=== PATIENT | female | born 2000 | race Hispanic/Latino ===

== ENCOUNTER → 2024-03-02 08:17 | Outpatient (CLI) | payer BC, SELFPAY ==
[2024-03-02 09:15] LABS: Influenza A - CEPHEID Flu A NEGATIVE (NEGATIVE); Influenza B - CEPHEID Flu B NEGATIVE (NEGATIVE); Respiratory Syncytial Virus Negative (Negative)
[2024-03-02 09:16] LABS: COVID-19 CEPHEID 4-PLEX PCR Negative (Negative)
== END ==
PROVIDERS: Referring Provider Physician Assistant Surgical; Visit Provider Physician Assistant Surgical
DX: R05.1 Acute cough (principal); J02.9 Acute pharyngitis, unspecified
CPT/HCPCS: 0241U; 87070; 87077; 87147

== ENCOUNTER 2024-07-24 16:09 | Emergency (ER) | payer BC, SELFPAY ==
[2024-07-24 16:32] VITALS: BP 120/86; PULSE 73; RESP 16; TEMP 36.6; O2SAT 97; BMI 21.5
--- NOTE | 2024-07-24 16:35 | DI.RAD.S_ITS ---
PROCEDURE: XR FOOT LT MIN 3V INDICATIONS: kicked peloton bike base/swollen 4th digit and metatarsal TECHNIQUE: 3 views of the foot were acquired. COMPARISON: None. FINDINGS: Bones: There is a mildly displaced fracture seen involving the shaft of the proximal phalanx of the 4th toe. No intra-articular involvement is seen. No additional fractures are detected. Incidental note is made of an accessory ossicle, an os peroneum. Soft tissues: 4th toe soft tissue swelling is seen. IMPRESSION: Fourth toe fracture. Dictated by: Bradly Mckeon M.D. on 07/24/2024 at 16:20 Approved by: Bradly Mckeon M.D. on 07/24/2024 at 16:21
--- NOTE | 2024-07-24 18:30 | ED_ITS ---
HPI - Extremity Injury (Lower) <Radha Peñlaoza PA-C - Last Filed: 07/24/24 19:30> General Chief Complaint: Extremity Injury, Lower Stated [facility] Time Seen by Provider: 07/24/24 18:25 History of Present Illness HPI Narrative: Ms. Rabago is a pleasant 24-year-old female with no reported past medical history who presents to the emergency department for pain and bruising of her left 4th toe after accidentally kicking her Peloton yesterday morning. Patient reports pain, bruising of the toe and concern for fracture. Injury was caused by direct stubbing injury. Bruising is on the 4th toe and spreading onto the foot. She denies numbness, tingling. Ibuprofen improves the pain but does not resolve it altogether. She is continuing to ambulate independently. 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 Related Data Home Medications Medication Instructions Recorded Confirmed L norgest/E estradiol-E estrad 1 tab PO DAILY 03/02/24 03/02/24 0.15 mg-30 mcg (84)/10 mcg(7) tabs,3mos (Ashlyna) fluoxetine 40 mg capsule (Prozac) 40 mg PO DAILY 03/02/24 03/02/24 Allergies Allergy/AdvReac Type Severity Reaction Status Date / Time No Known Drug Allergies Allergy Unverified 03/02/24 08:15 Review of Systems <Radha Peñaloza PA-C - Last Filed: 07/24/24 19:30> Review of Systems ROS Unobtainable: All systems reviewed & are unremarkable except as noted in HPI and below Patient History <Radha Peñaloza PA-C - Last Filed: 07/24/24 19:30> Social History Smoking Status: Never smoker Smoking Status: Never smoker Exam <Radha Peñaloza PA-C - Last Filed: 07/24/24 19:30> Narrative Exam Narrative: GENERAL: 24 year old patient appears stated age. Well-developed patient, in no acute distress. CARDIOVASCULAR: Regular rate and rhythm. RESPIRATORY: ?Nonlabored respirations. ?Speaking in clear, full sentences. ? EXTREMITIES: Ecchymosis of left 4th toe spreading onto dorsal aspect of foot. Tenderness to palpation of left 4th toe. No deformities. Brisk capillary refill, sensation intact to light touch on distal tip of toe. No tenderness to palpation of the remainder of the left foot or ankle. NEURO: AOx3. ?Clear speech. ?Ambulates independently SKIN: No rash or erythema of visible areas Initial Vital Signs Initial Vital Signs: Vital Signs Temperature 97.8 F 07/24/24 16:32 Pulse Rate 73 07/24/24 16:32 Respiratory Rate 16 07/24/24 16:32 Blood Pressure 120/86 07/24/24 16:32 Pulse Oximetry 97 07/24/24 16:32 Oxygen Delivery Method Room Air 07/24/24 16:32 <DO Zuhair Arizmendi Last Filed: 07/24/24 19:37> Initial Vital Signs Initial Vital Signs: Vital Signs Temperature 97.8 F 07/24/24 16:32 Pulse Rate 73 07/24/24 16:32 Respiratory Rate 16 07/24/24 16:32 Blood Pressure 120/86 07/24/24 16:32 Pulse Oximetry 97 07/24/24 16:32 Oxygen Delivery Method Room Air 07/24/24 16:32 Course <WENDY Glaser Last Filed: 07/24/24 19:30> Orders Ordered: ED Orders 07/24/24 16:35 XR foot LT min 3V Stat Vital Signs Vital signs: Vital Signs - 8 hr 07/24/24 16:32 07/24/24 18:52 Temperature 97.8 F 98.0 F Pulse Rate 73 80 Respiratory Rate 16 16 Blood Pressure 120/86 111/72 Pulse Oximetry 97 97 Oxygen Delivery Method Room Air Room Air <DO Zuhair Arizmendi Last Filed: 07/24/24 19:37> Orders Ordered: ED Orders 07/24/24 16:35 XR foot LT min 3V Stat Vital Signs Vital signs: Vital Signs - 8 hr 07/24/24 16:32 07/24/24 18:52 Temperature 97.8 F 98.0 F Pulse Rate 73 80 Respiratory Rate 16 16 Blood Pressure 120/86 111/72 Pulse Oximetry 97 97 Oxygen Delivery Method Room Air Room Air MDM - Extremity Injury (Lower) <WENDY Glaser Last Filed: 07/24/24 19:30> Imaging Data Left Foot X-Ray: Radiologist's Impression: PROCEDURE: XR FOOT LT MIN 3V INDICATIONS: kicked peloton bike base/swollen 4th digit and metatarsal TECHNIQUE: 3 views of the foot were acquired. COMPARISON: None. FINDINGS: Bones: There is a mildly displaced fracture seen involving the shaft of the proximal phalanx of the 4th toe. No intra-articular involvement is seen. No additional fractures are detected. Incidental note is made of an accessory ossicle, an os peroneum. Soft tissues: 4th toe soft tissue swelling is seen. IMPRESSION: Fourth toe fracture. MDM Narrative Medical decision making narrative: 24-year-old female with no reported past medical history who presents to the emergency department for pain and bruising of her left 4th toe after accidentally kicking her Peloton yesterday morning. Differential diagnosis includes toe fracture, metatarsal fracture, bruise, contusion, sprain, strain, etc. On exam patient is in no acute distress, nontoxic appearing, vital signs appropriate. She has pain and bruising of the left 4th toe. Left foot is neurovascularly intact. No deformity of the toe. Patient declines need for pain medication at this time. X-ray confirms mildly displaced fracture seen involving the shaft of the proximal phalanx of the 4th toe. No intra-articular involvement. Patient's toe was ashvin-taped to the next, she was placed into a postoperative shoe, and given crutches if needed. She is recommended weight- bearing as tolerated and follow up with PCP and Orthopedics or [facility]. Discussed with patient that healing often takes 4-6 weeks but can take longer. Recommended rice therapy, cushion between toes that are ashvin- taped, ibuprofen/Tylenol. She verbalized understanding of all information and is agreeable to the plan. She is stable for discharge home. Discharge Plan Departure Patient Disposition: Home Clinical Impression: Closed fracture of fourth toe of left foot Qualifiers: Encounter type: initial encounter Qualified Code(s): S92.502A - Displaced unspecified fracture of left lesser toe(s), initial encounter for closed fracture Instructions: DI for Toe Fracture Activity Restrictions/Additional Instructions: Today you were evaluated for pain and bruising of your left 4th toe. X-ray was obtained of the foot which reveals a fracture or a break in your 4th toe. Please keep this toe taped to your 3rd toe for support and wear the postoperative shoe you were supplied with. Please follow up with your primary care doctor and/or orthopedics for further management. Please use RICE therapy for your pain in addition to ibuprofen/acetaminophen. Rest the painful area. Ice the area of pain/swelling for at least 15 minutes, 4x a day. Compress the area of swelling using a brace, wrap, or splint if applied. Elevate the painful or swollen extremity by supporting it above the level of the heart with pillows when sitting or laying. Please take Ibuprofen (Motrin/Advil) or Acetaminophen (Tylenol) for pain. These are available over the counter. You may take Ibuprofen 600 mg every 8 hours with food for pain. You may also take Acetaminophen 650 mg every 4-6 hours for pain. Do not exceed 3000 mg of Tylenol a day as this can cause liver damage. Do not drink alcohol with either of these medications. You may call to schedule an appointment with [facility] at [phone] or [facility] at [phone] for further man agement of your toe fracture. Please follow up with your primary care doctor within the next 2-3 days for ER follow-up. (If you do not have a PCP you can call [phone]. ?to schedule an appointment with an [facility] Primary Care Provider) IF YOU DEVELOP ANY NEW OR WORSENING SYMPTOMS, RETURN TO THE ER! Please read the attached instructions, they highlight more specific treatments and interventions for you at home. Thank you for letting me participate in your care, Radha Peñaloza PA-C Prescriptions: No Action L norgest/e.estradiol-e.estrad [Ashlyna] 0.15 mg-30 mcg (84)/10 mcg (7) tablets,dose pack,3 month 1 tab PO DAILY fluoxetine [Prozac] 40 mg capsule 40 mg PO DAILY Referrals: Miscellaneous,Doctor, MD [Primary Care Provider] - Stand Alone Forms: Patient Portal/API/Survey, Work Release Note ED Sign-out <Douglas Doyle DO - Last Filed: 07/24/24 19:37> Cosign ED Attending Cosignature Attestation: Dr Doyle Co-Sign Statement: I was available for consultation during this patient's emergency department visit. This chart is signed by myself for administrative purposes only. I did not have direct contact with this patient during this visit. They were seen independently by the APC.
[2024-07-24 18:52] VITALS: BP 111/72; PULSE 80; RESP 16; TEMP 36.7; O2SAT 97
== END 2024-07-24 19:24 | disposition home or self-care (01) ==
PROVIDERS: Emergency Provider Physician Assistant
DX: S92.502A Displaced unspecified fracture of left lesser toe(s), initial encounter for closed fracture (principal); W22.8XXA Striking against or struck by other objects, initial encounter
CPT/HCPCS: 73630; 99282; 99283

== ENCOUNTER → 2025-04-06 15:50 | Outpatient (CLI) | payer OTHER, SELFPAY ==
--- NOTE | 2025-04-06 15:52 | DI.CT.S_ITS ---
PROCEDURE: CT HAND LEFT WITHOUT CON INDICATIONS: rule out Left hook hamate fx TECHNIQUE: Noncontrast 1 mm axial sections acquired through the carpal bones, with coronal and sagittal reformats. COMPARISON: Outside Facility, RG, XR WRIST 3V LEFT, 02/16/2025, 23:48. [facility], CR, XR WRIST LT MIN 3V, 03/20/2025, 15:56. Outside Facility, RG, XR HAND 3V LEFT, 02/16/2025, 23:49. [facility], CR, XR WRIST LT MIN 3V, 03/30/2025, 16:39. FINDINGS: Image quality: Excellent. Bones: Alignment of left hand and wrist is anatomic. No acute fracture or dislocation. No signs of healing fractures. Joint spaces are well preserved. No evidence of avascular necrosis. No suspicious intraosseous lesions. Soft tissues: No soft tissue mass or drainable fluid collection. No abnormal soft tissue calcifications. No full-thickness extensor or flexor tendon ruptures. IMPRESSION: 1. No fracture or dislocation is seen in left hand and wrist. Specifically, no hook of hamate fracture. 2. No left hand soft tissue abnormalities. Dictated by: Gary Calvin M.D. on 04/07/2025 at 15:20 Approved by: Gary Calvin M.D. on 04/07/2025 at 15:23
== END ==
LOC: CT 15:52
PROVIDERS: PCP Family Medicine; Referring Provider Orthopaedic Surgery; Visit Provider Orthopaedic Surgery
DX: S62.145A Nondisplaced fracture of body of hamate [unciform] bone, left wrist, initial encounter for closed fracture (principal); X58.XXXA Exposure to other specified factors, initial encounter
CPT/HCPCS: 73200